=== PATIENT | female | born 1975 | race Caucasian/White ===

== ENCOUNTER 2023-03-17 09:32 | Emergency (ER) | payer SELFPAY ==
[~2023-03-17] VITALS: Ht 165 cm; Wt 83.0 kg
--- NOTE | 2023-03-17 09:42 | ED GU-Female ---
General Stated Complaint: UTI | URINATING BLOOD History of Present Illness Date Seen by Provider: Mar 17, 2023 Time Seen by Provider: 09:42 Initial Comments 47-year-old female presents with suprapubic and urine discomfort. Mild discoloration of her urine. Bilateral flank pain. 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 She reports about a month ago she was started on a new medication for diabetes by her primary care provider in [place]. That she developed kidney pain and was asked to stop it. She reports that since then she has had just some discomfort. She has been taking Azo consistently with minimal relief. She presents today because the pain is just significantly worse with both her dysuria and her flank pain. She denies any fevers or chills. She is mildly nauseated Allergies and Home Medications Allergies Coded Allergies: NSAIDS (Non-Steroidal Anti-Inflamma (Verified Allergy, Intermediate, 03/17/23) cephalexin (Verified Allergy, Intermediate, 03/17/23) sulfamethoxazole (Verified Allergy, Intermediate, 03/17/23) trimethoprim (Verified Allergy, Intermediate, 03/17/23) Patient Home Medication List Home Medication List Reviewed: Yes Levofloxacin (Levofloxacin) 750 Mg Tablet, 750 MG PO DAILY Prescribed by: VERONIKA BAUMANN on 03/17/23 1132 Ondansetron (Ondansetron Odt) 4 Mg Tab.rapdis, 4 MG PO Q6H PRN for NAUSEA/VOMITING Prescribed by: VERONIKA BAUMANN on 03/17/23 1132 Tramadol HCl (Tramadol HCl) 50 Mg Tablet, 50 MG PO Q6H PRN for PAIN Prescribed by: VERONIKA BAUMANN on 03/17/23 1133 Review of Systems Review of Systems Constitutional: No chills, No fever Respiratory: no symptoms reported Cardiovascular: no symptoms reported Gastrointestinal: see HPI Genitourinary: see HPI Skin: no symptoms reported Psychiatric/Neurological: No Symptoms Reported Endocrine: No Symptoms Reported Physical Exam Vital Signs Vital Signs - First Documented 03/17/23 09:42 Temp 37.0 Pulse 126 Resp 24 B/P (MAP) 160/97 (118) Pulse Ox 98 O2 Delivery Room Air Capillary Refill : Height, Weight, BMI Height: '" Weight: lbs. oz. kg; BMI Method: General Appearance: mild distress Neck: full range of motion, supple Cardiovascular: tachycardia Respiratory: lungs clear, normal breath sounds, no respiratory distress Gastrointestinal: non tender, soft Extremities: non-tender, normal inspection Neurologic/Psychiatric: alert, normal mood/affect, oriented x 3 Skin: normal color, warm/dry Progress/Results/Core Measures Suspected Sepsis SIRS Temperature: Pulse: Respiratory Rate: Laboratory Tests 03/17/23 10:05: White Blood Count 15.0H Blood Pressure / Mean: Laboratory Tests 03/17/23 10:05: Creatinine 0.82, Platelet Count 260, Total Bilirubin 0.4 Results/Orders Lab Results Laboratory Tests Test 03/17/23 09:40 03/17/23 10:05 Range/Units Urine Color REGINA H Urine Clarity SL CLOUDY Urine pH 5.0 5-9 Urine Specific [place] 1.025 H 1.016-1.022 Urine Protein 3+ H NEGATIVE Urine Glucose (UA) 1+ H NEGATIVE Urine Ketones TRACE H NEGATIVE Urine Nitrite POSITIVE H NEGATIVE Urine Bilirubin NEGATIVE NEGATIVE Urine Urobilinogen >=8.0 < = 1.0 MG/DL Urine Leukocyte Esterase TRACE H NEGATIVE Urine RBC (Auto) NEGATIVE NEGATIVE Urine RBC NONE /HPF Urine WBC 10-25 H /HPF Urine Squamous Epithelial Cells 10-25 H /HPF Urine Crystals NONE /LPF Urine Bacteria FEW H /HPF Urine Casts NONE /LPF Urine Mucus NEGATIVE /LPF Urine Culture Indicated YES White Blood Count 15.0 H 4.3-11.0 10^3/uL Red Blood Count 4.50 3.80-5.11 10^6/uL Hemoglobin 14.6 11.5-16.0 g/dL Hematocrit 43 35-52 % Mean Corpuscular Volume 96 80-99 fL Mean Corpuscular Hemoglobin 32 25-34 pg Mean Corpuscular Hemoglobin Concent 34 32-36 g/dL Red Cell Distribution Width 13.9 10.0-14.5 % Platelet Count 260 130-400 10^3/uL Mean Platelet Volume 10.5 9.0-12.2 fL Immature Granulocyte % (Auto) 1 % Neutrophils (%) (Auto) 69 42-75 % Lymphocytes (%) (Auto) 23 12-44 % Monocytes (%) (Auto) 6 0-12 % Eosinophils (%) (Auto) 1 0-10 % Basophils (%) (Auto) 1 0-10 % Neutrophils # (Auto) 10.3 H 1.8-7.8 10^3/uL Lymphocytes # (Auto) 3.4 1.0-4.0 10^3/uL Monocytes # (Auto) 0.9 0.0-1.0 10^3/uL Eosinophils # (Auto) 0.1 0.0-0.3 10^3/uL Basophils # (Auto) 0.1 0.0-0.1 10^3/uL Immature Granulocyte # (Auto) 0.2 H 0.0-0.1 10^3/uL Neutrophils % (Manual) 70 % Lymphocytes % (Manual) 20 % Monocytes % (Manual) 10 % Eosinophils % (Manual) 0 % Basophils % (Manual) 0 % Band Neutrophils 0 % Blood Morphology Comment NORMAL Sodium Level 139 135-145 MMOL/L Potassium Level 3.9 3.6-5.0 MMOL/L Chloride Level 106 98-107 MMOL/L Carbon Dioxide Level 20 L 21-32 MMOL/L Anion Gap 13 5-14 MMOL/L Blood Urea Nitrogen 13 7-18 MG/DL Creatinine 0.82 0.60-1.30 MG/DL Estimat Glomerular Filtration Rate 90 BUN/Creatinine Ratio 16 Glucose Level 216 H 70-105 MG/DL Calcium Level 9.3 8.5-10.1 MG/DL Corrected Calcium 9.1 8.5-10.1 MG/DL Total Bilirubin 0.4 0.1-1.0 MG/DL Aspartate Amino Transf (AST/SGOT) 108 H 5-34 U/L Alanine Aminotransferase (ALT/SGPT) 127 H 0-55 U/L Alkaline Phosphatase 143 H 40-136 U/L Total Protein 7.4 6.4-8.2 GM/DL Albumin 4.3 3.2-4.5 GM/DL My Orders Orders - BAUMANN,VERONIKA L DO Cbc With Automated Diff (03/17/23 09:48) Comprehensive Metabolic Panel (03/17/23 09:48) Ua Culture If Indicated (03/17/23 09:48) Ns Iv 1000 Ml (Sodium Chloride 0.9%) (03/17/23 09:48) Fentanyl Inj (Sublimaze Injection) (03/17/23 09:48) Ondansetron Injection (Zofran Injectio (03/17/23 10:15) Urine Culture (03/17/23 09:40) Manual Differential (03/17/23 10:05) Ct Abdomen/Pelvis W (03/17/23 10:31) Levofloxacin Tablet (Levaquin Tablet) (03/17/23 10:45) Iohexol Injection (Omnipaque 350 Mg/Ml 1 (03/17/23 10:45) Received Contrast (Hold Metformin- Contr (03/17/23 10:45) Ns (Ivpb) (Sodium Chloride 0.9% Ivpb Bag (03/17/23 10:45) Metoclopramide Injection (Reglan Injecti (03/17/23 11:30) Orphenadrine Inj (Ed Only) (Norflex Inje (03/17/23 11:20) Medications Given in ED Current Medications Medications Dose Ordered Sig/Chen Route Start Time Stop Time Status Last Admin Dose Admin Iohexol 100 ml ONCE ONCE IV 03/17/23 10:45 03/17/23 10:46 DC 03/17/23 10:51 80 ML Levofloxacin 750 mg ONCE ONCE PO 03/17/23 10:45 03/17/23 10:46 DC 03/17/23 11:17 750 MG Metoclopramide HCl 10 mg ONCE ONCE IVP 03/17/23 11:30 03/17/23 11:31 DC 03/17/23 11:20 10 MG Ondansetron HCl 4 mg ONCE ONCE IVP 03/17/23 10:15 03/17/23 10:16 DC 03/17/23 10:09 4 MG Sodium Chloride 100 ml ONCE ONCE IV 03/17/23 10:45 03/17/23 10:46 DC 03/17/23 10:51 80 ML Vital Signs/I&O 03/17/23 03/17/23 03/17/23 09:42 10:10 11:44 Temp 37.0 37.0 37.0 Pulse 126 87 Resp 24 20 B/P (MAP) 160/97 (118) 143/91 Pulse Ox 98 98 O2 Delivery Room Air Room Air Capillary Refill : Progress Note : Progress Note Patient's diagnostic studies were ordered reviewed and interpreted by me. She does have elevated white count. Her urine is consistent with a urinary tract infection. Obtain a CT abdomen pelvis with contrast for further evaluation and was reviewed. Shows no acute pyelonephritis, kidney stones or other abnormality. Patient symptoms likely related to urinary tract infection. 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 Patient will be treated with Levaquin since she is allergic to cephalexin and sulfa antibiotics. Patient will be given a small dose of tramadol due to the pain along with nausea medication. Recommend she drink plenty of fluids, follow-up with her primary care provider when she gets back home. Patient is at increased risk of morbidity mortality based on her social determinants of health. She was stable upon discharge Departure Impression Primary Impression: Urinary tract infection Qualified Codes: N30.00 - Acute cystitis without hematuria Disposition: HOME, SELF-CARE Condition: Stable Departure-Patient Inst. Referrals: NO,LOCAL PHYSICIAN (PCP/Family) Primary Care Physician Patient Instructions: Urinary Tract Infection, Adult (DC) Scripts Tramadol HCl (Tramadol HCl) 50 Mg Tablet 50 MG PO Q6H PRN for PAIN, #10 TAB 0 Refills Prov: VERONIKA BAUMANN DO 03/17/23 Ondansetron (Ondansetron Odt) 4 Mg Tab.rapdis 4 MG PO Q6H PRN for NAUSEA/VOMITING, #20 TAB 0 Refills Prov: VERONIKA BAUMANN DO 03/17/23 Levofloxacin (Levofloxacin) 750 Mg Tablet 750 MG PO DAILY for 7 Days, #7 TAB Prov: VERONIKA BAUMANN DO 03/17/23 VERONIKA BAUMANN DO Mar 17, 2023 09:42
[2023-03-17] MEDS ORDERED: fentaNYL INJ 100 MCG/2 ML AMP IVP STA (09:48)
[2023-03-17] MEDS ORDERED: NS IV 1000 ML 1,000 ML IV STA (09:48)
[2023-03-17 10:00] LABS: BILIRUBIN,URINE NEGATIVE (NEGATIVE); CLARITY,URINE SL CLOUDY; COLOR,URINE AMBER; GLUCOSE, URINE (UA) 1+ (NEGATIVE); KETONES,URINE TRACE (NEGATIVE); LEUKOCYTE ESTERASE ,URINE TRACE (NEGATIVE); NITRITE,URINE POSITIVE (NEGATIVE); PROTEIN,URINE 3+ (NEGATIVE)
[2023-03-17 10:10] LABS: BACTERIA,URINE FEW /HPF
[2023-03-17 10:10] LABS: BASOPHILS # (AUTO) 0.1 10^3/uL (0.0-0.1); BASOPHILS % (AUTO) 1 % (0-10); EOSINOPHILS # (AUTO) 0.1 10^3/uL (0.0-0.3); EOSINOPHILS % (AUTO) 1 % (0-10); HEMATOCRIT 43 % (35-52); HEMOGLOBIN 14.6 g/dL (11.5-16.0); LYMPHOCYTES # (AUTO) 3.4 10^3/uL (1.0-4.0); LYMPHOCYTES % (AUTO) 23 % (12-44); MEAN CORPUSCULAR HEMOGLOBIN 32 pg (25-34); MEAN CORPUSCULAR HGB CONC 34 g/dL (32-36); MEAN CORPUSCULAR VOLUME 96 fL (80-99); MEAN PLATELET VOLUME 10.5 fL (9.0-12.2); MONOCYTES # (AUTO) 0.9 10^3/uL (0.0-1.0); MONOCYTES % (AUTO) 6 % (0-12); NEUTROPHILS # (AUTO) 10.3 10^3/uL (1.8-7.8); NEUTROPHILS % (AUTO) 69 % (42-75); PLATELET COUNT 260 10^3/uL (130-400)
[2023-03-17] MEDS ORDERED: ONDANSETRON 4 MG/2 ML (SDV) Z0FRAN IVP ONE (10:15)
[2023-03-17 10:23] LABS: ALBUMIN 4.3 GM/DL (3.2-4.5); POTASSIUM 3.9 MMOL/L (3.6-5.0)
[2023-03-17 10:25] LABS: CALCIUM 9.3 MG/DL (8.5-10.1)
[2023-03-17 10:26] LABS: TOTAL PROTEIN 7.4 GM/DL (6.4-8.2)
[2023-03-17 10:27] LABS: BILIRUBIN,TOTAL 0.4 MG/DL (0.1-1.0)
[2023-03-17 10:29] LABS: CREATININE SERUM 0.82 MG/DL (0.60-1.30)
[2023-03-17 10:33] LABS: BAND NEUTROPHILS 0 %; BASOPHILS % (MANUAL) 0 %; EOSINOPHILS % (MANUAL) 0 %; LYMPHOCYTES % (MANUAL) 20 %; MONOCYTES % (MANUAL) 10 %; NEUTROPHILS % (MANUAL) 70 %
[2023-03-17 10:34] LABS: RBC MORPH NORMAL
[2023-03-17] MEDS ORDERED: NS 100 ML (IVPB) BAG IV ONE (10:45)
[2023-03-17] MEDS ORDERED: IOHEXOL 350 MG/ML 100 ML (OMNIPAQUE 350) VIAL IV ONE (10:45)
[2023-03-17] MEDS ORDERED: HOLD METFORMIN - RECEIVED CONTRAST 20 ML VIAL IV SCH (10:45)
--- NOTE | 2023-03-17 11:14 | Diagnostic Imaging Report ---
PROCEDURE: CT abdomen and pelvis with contrast. TECHNIQUE: Multiple contiguous axial images were obtained through the abdomen and pelvis after administration of intravenous contrast. Auto Exposure Controls were utilized during the CT exam to meet ALARA standards for radiation dose reduction. All CT scans use one or more of the following dose optimizing techniques: automated exposure control, MA and/or KvP adjustment based on patient size and exam type or iterative reconstruction. INDICATION: Low back pain x3 days. Clinical concern for pyelonephritis. COMPARISON: None. FINDINGS: Diffuse fatty infiltration of the liver. Cholecystectomy. The pancreas, spleen, adrenals, kidneys, collecting systems and bladder are negative. Hysterectomy. Appendectomy. No free intraperitoneal air or fluid. No lymphadenopathy. No evidence of bowel obstruction. No acute osseous findings. The lung bases are unremarkable. IMPRESSION: 1. No acute CT findings in the abdomen or pelvis. Specifically, no evidence of pyelonephritis. 2. Hepatic steatosis. Dictated by: Dictated on workstation # [id number]
[2023-03-17] MEDS ORDERED: ORPHENADRINE 60 MG/2 ML (NORFLEX) AMP (ED ONLY) IV STA (11:20)
[2023-03-17] MEDS ORDERED: METOCLOPRAMIDE INJ 10 MG/2 ML (REGLAN) IVP ONE (11:30)
[2023-03-17] MEDS ORDERED: TRM50T PO (11:32)
[2023-03-17] MEDS ORDERED: ONDA4TAB11 PO (11:32)
[2023-03-17] MEDS ORDERED: LEVO750T PO (11:32)
[2023-03-17 11:44] VITALS: BP 143/91
== END 2023-03-17 11:44 | disposition home or self-care (01) ==
LOC: ER 09:35
DX: N39.0 Urinary tract infection, site not specified (principal); E11.9 Type 2 diabetes mellitus without complications; Z88.2 Allergy status to sulfonamides
CPT/HCPCS: 36415; 74177; 80053; 81000; 85007; 85027; 87088